=== PATIENT | female | born 1975 | race African-American/Black ===

== ENCOUNTER 2020-12-09 00:12 | Emergency (ER) | payer BC, OTHER ==
[~2020-12-09] VITALS: Ht 175.3 cm; Wt 84.0 kg
[~2020-12-09 00:12] MED LIST: MOTRIN; VIC
[2020-12-09 00:22] VITALS: BP 136/79
[2020-12-09] MEDS ORDERED: LIDOCAINE HCL/PF 1% 10 MG/ML 5ML VIAL IJ ONE (03:45)
== END 2020-12-09 07:10 | disposition home or self-care (01) ==
LOC: ER 00:12
DX: S01.531A Puncture wound without foreign body of lip, initial encounter (principal); X58.XXXA Exposure to other specified factors, initial encounter; Y93.89 Activity, other specified; Y92.9 Unspecified place or not applicable
CPT/HCPCS: 70140; 99283; J3490; Z7610